=== PATIENT | male | born 1995 | race Caucasian/White ===

== ENCOUNTER 2017-02-28 16:28 | Emergency (ER) | payer SELFPAY ==
[~2017-02-28] VITALS: Ht 177.8 cm; Wt 81.6 kg
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
--- NOTE | 2017-02-28 16:42 | NUR ---
CLAUDETTE PEARL AT BEDSIDE FOR EVAL.
[2017-02-28] MEDS ORDERED: HYDROCODONE/APAP 10/325MG 1 EA TABLET ONE (16:47)
--- NOTE | 2017-02-28 16:56 | NUR ---
RADIOLOGY AT BEDSIDE FOR LT KNEE XRAY.
[2017-02-28] MEDS ORDERED: HYDROCODONE/APAP 10/325MG 1 EA TABLET PO ONE (17:00)
--- NOTE | 2017-02-28 17:45 | NUR ---
WOUND CARE PROVIDED.
--- NOTE | 2017-02-28 17:51 | NUR ---
Patient discharged to home in stable condition. Written and verbal after care instructions given. Patient verbalizes understanding of instruction.Crutches dispensed. Pt instructed on proper use of crutches. Patient able to demonstrate correct use of crutches.
[2017-02-28 17:52] VITALS: BP 132/74
== END 2017-02-28 17:53 | disposition home or self-care (01) ==
LOC: ER 16:30
DX: S80.02XA Contusion of left knee, initial encounter (principal); V29.9XXA Motorcycle rider (driver) (passenger) injured in unspecified traffic accident, initial encounter; Y93.89 Activity, other specified; Y92.89 Other specified places as the place of occurrence of the external cause; Y99.9 Unspecified external cause status
CPT/HCPCS: 73564; 99284; A4606; A6403; Z7610